=== PATIENT | male | born 1980 | race Caucasian/White ===

== ENCOUNTER 2020-03-19 06:56 | Outpatient (CLI) | payer OTHER, SELFPAY ==
[2020-03-19 07:10] LABS: Add Urine Microscopic? YES; Appearance Urine Clear (Clear); Basophils Absolute Auto 0.04 K/mm3 (0.00-0.10); Basophils Percent Auto 0.4 % (0.0-1.0); Bilirubin Urine Negative (Negative); Blood Urine Negative (Negative); Color Urine Yellow (Yellow); Eosinophils Absolute Auto 0.42 K/mm3 (0.02-0.50); Eosinophils Percent Auto 4.4 % (1.0-6.0); Glucose Urine UA Negative (Negative); Hematocrit 41.6 % (40.0-54.0); Hemoglobin 14.1 g/dL (14.0-18.0); Immature Granulocyte Absolute 0.04 K/mm3 (0.00-0.00); Immature Granulocyte Percent A 0.4 % (0.0-0.0); Ketones Urine Negative (Negative); Leukocyte Esterase Ur Negative (Negative); Lymphocytes Percent Auto 29.6 % (18.0-42.0); Mean Corpuscular HGB Conc 33.9 g/dL (32.0-36.0); Mean Corpuscular Hemoglobin 29.1 pg (27.0-31.0); Mean Corpuscular Volume 85.8 fL (78.0-102.0); Mean Platelet Volume 9.7 fl (8.7-11.0); Monocytes Absolute Auto 0.77 K/mm3 (0.10-0.90); Monocytes Percent Auto 8.1 % (2.0-11.0); Neutrophils Absolute Auto 5.4 K/mm3 (1.7-7.2); Neutrophils Percent Auto 57.1 % (50.0-70.0); Nitrate Urine Negative (Negative); Platelet Count Result 332 K/mm3 (150-420); Protein Urine Trace (Negative); Red Blood Count 4.85 M/mm3 (4.70-6.10); Red Cell Distribution Width 12.2 % (11.6-14.4); Specific Grav Ur >= 1.030 (1.010-1.020); Urobilinogen Urine 0.2 mg/dL (0.2-1.0); White Blood Count 9.5 K/mm3 (4.8-10.8); pH Urine 5.5 (5.0-8.0)
[2020-03-19 07:38] LABS: Bacteria Urine Trace /hpf; Mucus Urine Moderate /lpf; RBC Urine None seen /hpf (0-2); WBC Urine None seen /hpf (0-3)
[2020-03-19 08:37] LABS: Alanine Aminotransferase 33 U/L (16-63); Albumin Level 3.7 g/dL (3.4-5.0); Alkaline Phosphatase 101 U/L (46-116); Anion Gap 8 mmol/L (8-16); Aspartate Amino Transferase 12 U/L (15-37); Bilirubin,Total 0.3 mg/dL (0.00-1.00); Blood Urea Nitrogen 14 mg/dL (7-18); Calcium 8.6 mg/dL (8.5-10.1); Carbon Dioxide 29 mmol/L (21-32); Chloride 104 mmol/L (98-108); Cholesterol 182 mg/dL (0-200); Estimated Glomerular Filt Rate > 60; Glucose 104 mg/dL (70-99); HDL Direct 30 mg/dL (40-60); LDL Cholesterol Calculated 108 mg/dL (<130); Osmolality Calculated 292 mOsm/kg (285-295); Potassium 4.3 mmol/L (3.5-5.1); Sodium 141 mmol/L (136-145); Triglycerides 221 mg/dL (0-150)
[2020-03-24 15:52] LABS: Testosterone Total 453 ng/dL (250-1100)
[2020-03-25 13:06] LABS: Testosterone Free 82.4 pg/mL (35.0-155.0)
== END 2020-03-19 06:57 | disposition home or self-care (01) ==
LOC: CHSLAB 07:00
PROVIDERS: PCP Internal Medicine; Visit Provider Internal Medicine
DX: Z00.00 Encounter for general adult medical examination without abnormal findings (principal); N52.9 Male erectile dysfunction, unspecified
CPT/HCPCS: 36415; 80053; 80061; 81001; 84402; 84403; 85025

== ENCOUNTER 2021-06-02 08:22 | Outpatient (CLI) | payer SELFPAY ==
[2021-06-02 08:55] LABS: Basophils Absolute Auto 0.06 K/mm3 (0.00-0.10); Basophils Percent Auto 0.7 % (0.0-1.0); Eosinophils Absolute Auto 0.32 K/mm3 (0.02-0.50); Eosinophils Percent Auto 3.8 % (1.0-6.0); Hematocrit 39.6 % (40.0-54.0); Hemoglobin 13.4 g/dL (14.0-18.0); Immature Granulocyte Absolute 0.02 K/mm3 (0.00-0.00); Immature Granulocyte Percent A 0.2 % (0.0-0.0); Lymphocytes Absolute Auto 2.66 K/mm3 (1.10-4.50); Lymphocytes Percent Auto 31.6 % (18.0-42.0); Mean Corpuscular HGB Conc 33.8 g/dL (32.0-36.0); Mean Corpuscular Hemoglobin 29.8 pg (27.0-31.0); Mean Corpuscular Volume 88.2 fL (78.0-102.0); Mean Platelet Volume 9.3 fl (8.7-11.0); Monocytes Absolute Auto 0.81 K/mm3 (0.10-0.90); Monocytes Percent Auto 9.6 % (2.0-11.0); Neutrophils Absolute Auto 4.6 K/mm3 (1.7-7.2); Neutrophils Percent Auto 54.1 % (50.0-70.0); Platelet Count Result 268 K/mm3 (150-420); Red Blood Count 4.49 M/mm3 (4.70-6.10); Red Cell Distribution Width 12.2 % (11.6-14.4); White Blood Count 8.4 K/mm3 (4.8-10.8)
[2021-06-02 08:58] LABS: Add Urine Microscopic? NO; Appearance Urine Clear (Clear); Bilirubin Urine Negative (Negative); Blood Urine Negative (Negative); Color Urine Yellow (Yellow); Glucose Urine UA Negative (Negative); Ketones Urine Negative (Negative); Leukocyte Esterase Ur Negative (Negative); Nitrate Urine Negative (Negative); Protein Urine Negative (Negative); Specific Grav Ur >= 1.030 (1.010-1.020); Urobilinogen Urine 0.2 mg/dL (0.2-1.0)
[2021-06-02 09:52] LABS: Alanine Aminotransferase 51 U/L (16-63); Albumin Level 3.2 g/dL (3.4-5.0); Alkaline Phosphatase 94 U/L (46-116); Anion Gap 6 mmol/L (8-16); Aspartate Amino Transferase 21 U/L (15-37); Bilirubin,Total 0.2 mg/dL (0.00-1.00); Blood Urea Nitrogen 13 mg/dL (7-18); Calcium 8.6 mg/dL (8.5-10.1); Carbon Dioxide 31 mmol/L (21-32); Chloride 105 mmol/L (98-108); Cholesterol 154 mg/dL (0-200); Estimated Glomerular Filt Rate > 60; Free T4 Free Thyroxine 0.87 ng/dL (0.76-1.46); Glucose 73 mg/dL (70-99); HDL Direct 48 mg/dL (40-60); LDL Cholesterol Calculated 96 mg/dL (<130); Osmolality Calculated 293 mOsm/kg (285-295); Sodium 142 mmol/L (136-145); Total Protein 6.5 g/dL (6.4-8.2); Triglycerides 51 mg/dL (0-150)
== END 2021-06-02 08:23 | disposition home or self-care (01) ==
PROVIDERS: PCP Internal Medicine; Visit Provider Internal Medicine
DX: Z00.00 Encounter for general adult medical examination without abnormal findings (principal)
CPT/HCPCS: 36415; 80053; 80061; 81003; 84439; 84443; 85025

== ENCOUNTER 2024-08-13 11:52 | Emergency (ER) | payer MEDICAID, SELFPAY ==
--- NOTE | ~2024-08-13 | XR_ITS ---
Right Knee Technique: AP, lateral, and sunrise views were obtained. Clinical History: Injury Findings: No fracture or dislocation is seen. Osseous alignment is anatomic. Joint spaces are preserv ed without degenerative or erosive change. Soft tissues are unremarkable. No joint effusion is seen. Impression: Unremarkable right knee radiographs. Reviewed, dictated and finalized at location . Impression: Unremarkable right knee radiographs.
[2024-08-13 11:53] VITALS: BP 124/76; PULSE 79; RESP 16; TEMP 37.2; O2SAT 96
--- OUTSIDE RECORDS SUMMARY | 2024-08-13 11:54 | XMS_ITS | Clinical Summary ---
Author Organization [facility] Address [facility] [place] [address] Care Team Providers Care Shale Miner Name Role Phone Markus Melchor MD Primary Care Provider [phone] Medications HYDROcodone-kayley taminophen (NORCO) 5-325 MG tabletIndicatio ns:Acute Pain < 3 Day Supply Take 1-2 tablets by mouth every 6 (six) hours as needed. Indications: Acute Pain < 3 Day Supply 12 tablet 01/04/2022 Active Social History Tobacco Use Types Packs/Day Years Used Date Smoking Tobacco: Never Assessed Sex and Gender Information Value Date Recorded Sex Assigned at Not on file Legal Sex Male 7:17 PM CDT Gender Identity Not on file Sexual Orientation Not on file Last Filed Vital Signs Vital Sign Reading Time Taken Comments Blood Pressure 146/89 01/04/2022 4:52 PM STATIONARY ENGINEER Pulse 114 01/04/2022 4:52 PM STATIONARY ENGINEER Temperature 36.8 C (98.2 F) 01/04/2022 4:52 PM STATIONARY ENGINEER Respiratory Rate 18 01/04/2022 4:52 PM STATIONARY ENGINEER Oxygen Saturation 100% 01/04/2022 4:52 PM STATIONARY ENGINEER Inhaled Oxygen Concentration - - Weight 79.4 kg (175 lb) 01/04/2022 4:52 PM STATIONARY ENGINEER Height 180.3 cm (5' 11) 01/04/2022 4:52 PM STATIONARY ENGINEER Body Mass Index 24.41 01/04/2022 4:52 PM STATIONARY ENGINEER Plan of Treatment Health Maintenance Due Date Last Done Comments Annual Physical 12/19/1982 Hepatitis C 12/19/1997 Hepatitis B Vaccines (1 of 3 - 19+ 3-dose series) 12/19/1998 DTaP, Tdap and Td Vaccines ( 2 - Td or Tdap) 12/15/2021 12/16/2011 COVID-19 Vaccine (2023-2 5 season) 2023 HPV Vaccines Aged Out No longer eligi ble based on patient's age to complete this topic Meningococcal B Vaccine Aged Out No l onger eligible based on patient's age to complete this topic Meningococcal Vaccine Aged Out No safia sharan eligible based on patient's age to complete this topic Pneumococcal Vaccine: Pediat rics (0 to 5 Years) and At-Risk Patients (6 to 49 Years) Aged Out No longer eligi ble based on patient's age to complete this topic RSV Immunizations Under 20 Months Aged Out No longer eligible based on patient's age to complete this topic Care Teams Shale Miner Relationship Specialty Start Date End Date Markus Melchor MD [address] [place] [address] PCP - General INTERNAL MEDICINE 01/04/22
--- NOTE | 2024-08-13 11:58 | ED_ITS ---
HPI - Extremity Injury (Lower) General Chief Complaint: Extremity Injury, Lower Stated Complaint: right knee swelling Time Seen by Provider: 08/13/24 11:56 Source: patient Mode of arrival: ambulatory Limitations: no limitations History of Present Illness HPI Narrative: Twisted right knee at work, felt a pop. No other injuries. Worse with movement and putting weight Related Data Home Medications ?Medication ?Instructions ?Recorded ?Confirmed ?Last Taken ?Type No Home Medications 12/25/18 12/25/18 Unknown History Allergies Allergy/AdvReac Type Severity Reaction Status Date / Time No Known Allergies Allergy Mild Verified 12/25/18 20:43 Review of Systems Review of Systems: All systems reviewed & are unremarkable except as noted in HPI and below PMFSH Past Medical History Medical History (Updated 08/13/24 @ 12:24 by La Nena Jama MD) Healthy adult Surgical History Surgical History No history of previous surgery Family History Family History Grandparent Non Hodgkin's lymphoma Grandparent FH: stomach cancer Other Diverticulitis Other Unknown family medical history Social History Social History Smoking packs per day: 1.5 Smoking cigarettes per day: 30.0 Years smoked: 23 Smoking pack-years: 34.50 Smoking status: Current every day smoker Tobacco type: cigarettes Second hand tobacco smoke exposure: Yes Alcohol intake: current Drinks per week: 1 Alcohol use details: Socially Substance use: never Occupation/Education: occupation Additional occupation/education comments: The patient works as a life insurance sales. Gender identity (if verbalized by the patient): Male Spiritual care concerns: No Agree to blood products: Yes Exam Narrative: General appearance: Well-developed, well-nourished Skin: Normal color Head: Normocephalic, nontraumatic l Neck: Supple, nontender Chest and respiratory: Airway patent, no respiratory distress, no accessory mus ginger use Heart: Regular rate/rhythm Abdomen: Soft, nontender, no organomegaly, quiet bowel sounds Vascular: Normal peripheral pulses, normal capillary refill. Musculoskeletal: right knee exam showed localized tenderness anteriorly, slightly swelling, no bruises, no deformity, limited range of motion because of pain Neurologic: Alert and oriented ?3, EMERGENCY MEDICAL DISPATCHER is normal as tested, no gross motor deficit Course Vital Signs Vital signs: Vital Signs Temperature 37.2 C 08/13/24 11:53 Pulse Rate 79 08/13/24 11:53 Respiratory Rate 16 08/13/24 11:53 Blood Pressure 124/76 08/13/24 11:53 Pulse Oximetry 96 08/13/24 11:53 Oxygen Delivery Room Air 08/13/24 11:53 Temperature 37.2 C 08/13/24 11:53 Pulse Rate 79 08/13/24 11:53 Respiratory Rate 16 08/13/24 11:53 Blood Pressure 124/76 08/13/24 11:53 Pulse Oximetry 96 08/13/24 11:53 Oxygen Delivery Room Air 08/13/24 11:53 MDM - Extremity Injury (Lower) MDM Narrative Medical decision making narrative: right knee twist Differential diagnosis sprain, strain, internal injury, less likely fracture X-ray of the right knee showed Differential Diagnosis Differential diagnosis: Likely acute internal derangement of knee and fracture of femur Imaging Data Radiologist's impression: Impressions Knee X-Ray 08/13/24 12:30 Impression: Unremarkable right knee radiographs. Critical Care Time Critical Care Time Critical Care Time: No Discharge Plan Discharge Clinical Impression: Right knee sprain Patient Disposition: Home Condition: Stable Instructions: Knee Sprain (ED), Splint Care (ED) Additional Instructions: Return if symptoms are worsening , call your family physician /orthopedic for appointment, take Tylenol , ibuprofen as as needed for aches and pain, continue home medications. Keep leg elevated, ice Patient Language: Moldovan Prescriptions: No Action No Home Medications Follow-up/Referrals: Rocco Suarez MD [Physician] - 08/15/24 Markus Melchor MD [Primary Care Provider] - Stand Alone Forms: Work/School Release IP
--- OUTSIDE RECORDS SUMMARY | 2024-08-13 12:24 | XMS_ITS | Clinical Summary ---
Author Organization [facility] Address [facility] [place] [address] Care Team Providers Care Special Education Professional Name Role Phone Markus Melchor MD Primary Care Provider Medications HYDROcodone-kayley taminophen (NORCO) 5-325 MG tabletIndicatio [...] Comments Blood Pressure 146/89 01/04/2022 4:52 PM RAIL DETECTOR CAR OPERATOR Pulse 114 01/04/2022 4:52 PM RAIL DETECTOR CAR OPERATOR Temperature 36.8 C (98.2 F) 01/04/2022 4:52 PM RAIL DETECTOR CAR OPERATOR Respiratory Rate 18 01/04/2022 4:52 PM RAIL DETECTOR CAR OPERATOR Oxygen Saturation 100% 01/04/2022 4:52 PM RAIL DETECTOR CAR OPERATOR Inhaled Oxygen Concentration - - Weight 79.4 kg (175 lb) 01/04/2022 4:52 PM RAIL DETECTOR CAR OPERATOR Height 180.3 cm (5' 11) 01/04/2022 4:52 PM RAIL DETECTOR CAR OPERATOR Body Mass Index 24.41 01/04/2022 4:52 PM RAIL DETECTOR CAR OPERATOR Plan of Treatment Health Maintenance Due Date [...] age to complete this topic Care Teams Special Education Professional Relationship Specialty Start Date End Date Markus Melchor MD [address] [place] [address] PCP - General INTERNAL MEDICINE 01/04/22
[2024-08-13] MEDS: IBUPROFEN 600 MG TABLET PO (12:41)
[2024-08-13] MEDS: HYDROcodone/acetaminophen (*CRX) 5-325 MG TABLET 1 TAB PO (12:42)
[2024-08-13 12:59] VITALS: BP 121/82; PULSE 84; RESP 16; TEMP 37; O2SAT 99
== END 2024-08-13 12:57 | disposition home or self-care (01) ==
PROVIDERS: Emergency Provider Emergency Medicine; PCP Internal Medicine
DX: S83.91XA Sprain of unspecified site of right knee, initial encounter (principal); F17.210 Nicotine dependence, cigarettes, uncomplicated; X50.0XXA Overexertion from strenuous movement or load, initial encounter; Y99.0 Civilian activity done for income or pay
CPT/HCPCS: 73562; 99283; A9270; L1830

== ENCOUNTER 2024-08-21 08:02 | Outpatient (CLI) | payer MEDICAID, SELFPAY ==
--- NOTE | ~2024-08-21 | MR_ITS ---
MRI of the right knee Clinical history: Injury Technique: Coronal proton density and proton density-weighted images, sagittal proton-density and T2 fat-sat images, and axial proton-density fat-saturated images were acquired. Findings: There is complete tear of the ACL which is very amorphous and poorly defined. Posterior cru ciate ligament is intact. Medial collateral ligament and the lateral collateral ligament complex is i ntact. Popliteus tendon is intact. Lateral meniscus is intact. There is a large bucket-handle tear of the medial meniscus with handle fr agment flipped towards intercondylar notch. There is a nondisplaced, minimally depressed impaction fracture at the posterolateral tibial plateau with extensive surrounding marrow edema (sagittal image 10, coronal image 18). There is mild contusio n of the posterior medial tibial plateau. Extensor mechanism is intact. Moderate to large joint effusion present. Minimal Painting's cyst. Impression: Acute ACL tear. Large bucket-handle tear of the medial meniscus, as detailed above. Nondisplaced, minimally depressed focal impaction fracture at the posterolateral tibial plateau with extensive surrounding marrow edema. Mild contusion at the posterior medial tibial plateau. Moderate to large joint effusion. Reviewed, dictated and finalized at [facility]. Impression: Acute ACL tear. Large bucket-handle tear of the medial meniscus, as detailed above. Nondisplaced, minimally depressed focal impaction fracture at the posterolatera l tibial plateau with extensive surrounding marrow edema. Mild contusion at the posterior medial tibial plateau. Moderate to large joint effusion.
--- OUTSIDE RECORDS SUMMARY | 2024-08-21 08:07 | XMS_ITS | Clinical Summary ---
Author Organization [facility] Address [facility] [place] [address] Care Team Providers Care Diesel Roller Operator Name Role Phone Markus Melchor MD Primary Care Provider [phone] Medications HYDROcodone-kayley taminophen (NORCO) 5-325 MG tabletIndicatio [...] Comments Blood Pressure 146/89 01/04/2022 4:52 PM WELL TREATMENT OFFSIDER Pulse 114 01/04/2022 4:52 PM WELL TREATMENT OFFSIDER Temperature 36.8 C (98.2 F) 01/04/2022 4:52 PM WELL TREATMENT OFFSIDER Respiratory Rate 18 01/04/2022 4:52 PM WELL TREATMENT OFFSIDER Oxygen Saturation 100% 01/04/2022 4:52 PM WELL TREATMENT OFFSIDER Inhaled Oxygen Concentration - - Weight 79.4 kg (175 lb) 01/04/2022 4:52 PM WELL TREATMENT OFFSIDER Height 180.3 cm (5' 11) 01/04/2022 4:52 PM WELL TREATMENT OFFSIDER Body Mass Index 24.41 01/04/2022 4:52 PM WELL TREATMENT OFFSIDER Plan of Treatment Health Maintenance Due Date [...] age to complete this topic Care Teams Diesel Roller Operator Relationship Specialty Start Date End Date Markus Melchor MD [address] [place] [address] PCP - General INTERNAL MEDICINE 01/04/22
== END 2024-08-21 08:03 | disposition home or self-care (01) ==
LOC: CHSIMG 08:04
PROVIDERS: PCP Family Medicine; Visit Provider Family Medicine
DX: S89.91XA Unspecified injury of right lower leg, initial encounter (principal); S83.421A Sprain of lateral collateral ligament of right knee, initial encounter; S83.211A Bucket-handle tear of medial meniscus, current injury, right knee, initial encounter; S82.144A Nondisplaced bicondylar fracture of right tibia, initial encounter for closed fracture; M79.89 Other specified soft tissue disorders; M25.461 Effusion, right knee
CPT/HCPCS: 73721

== ENCOUNTER 2024-11-21 12:06 | Emergency (ER) | payer OTHER, SELFPAY ==
--- NOTE | 2024-11-21 12:09 | ED_ITS ---
HPI - Dental/Oral General Chief complaint: Dental/Oral Stated complaint: facial swelling Source: patient Mode of arrival: ambulatory Limitations: no limitations History of Present Illness HPI Narrative: Patient is a 43-year-old male with a left face swelling over the past day. He has a bad tooth in the left upper mouth back row of teeth. MD Complaint: tooth pain (Sixteen) Onset (ago): day(s) (1) Duration: constant Severity: mild Severity scale (1-10): 1 Relieving factors: nothing Exacerbating factors: nothing Context: history of dental caries Associated symptoms: other (None) Treatment prior to arrival: none Related Data Allergies Allergy/AdvReac Type Severity Reaction Status Date / Time No Known Allergies Allergy Mild Verified 12/25/18 20:43 Review of Systems Review of Systems: All systems reviewed & are unremarkable except as noted in HPI and below Constitutional: Constitutional: Reports no additional constitutional complaints Eyes: Eyes: Reports no additional eye complaints ENT: Reports system reviewed and no additional complaints, except as documented Cardiovascular: Cardiovascular: Reports no additional cardiovascular complaints Respiratory: Respiratory: Reports no additional respiratory complaints Gastrointestinal: Gastrointestinal: Reports no additional gastrointestinal complaints Genitourinary: Genitourinary: Reports no additional male genitourinary complaints Musculoskeletal: Musculoskeletal: Reports no additional musculoskeletal complaints Integumentary/Breasts: Skin/Breast: Reports system reviewed and no additional complaints, except as docu Neurologic: Reports system reviewed and no additional complaints, except as documented Psychiatric: Psychiatric: Reports no additional psychiatric complaints Endocrine: Endocrine: Reports no additional endocrine complaints Hematologic/Lymphatic: Hematologic/Lymphatic: Reports no additional hematologic/lymphatic complaints Allergic/Immunologic: Allergic/Immunologic: Reports no additional allergic/immunologic complaints PMFSH Past Medical History Medical History Healthy adult Surgical History Surgical History No history of previous surgery Family History Family History Grandparent Non Hodgkin's lymphoma Grandparent FH: stomach cancer Other Diverticulitis Other Unknown family medical history Social History Social History Smoking packs per day: 1.5 Smoking cigarettes per day: 30.0 Years smoked: 23 Smoking pack-years: 34.50 Smoking status: Current every day smoker Tobacco type: cigarettes Second hand tobacco smoke exposure: Yes Alcohol intake: current Drinks per week: 1 Alcohol use details: Socially Substance use: never Occupation/Education: occupation Additional occupation/education comments: The patient works as a sales consultant residential manager. Gender identity (if verbalized by the patient): Male Spiritual care concerns: No Agree to blood products: Yes Exam Const: General: healthy appearing Nutritional Appearance: well nourished Orientation/consciousness: patient oriented x3 HENMT: Head: normal to inspection Ears: external ears normal Face/Nose/Sinus: Normal external nose present Teeth and gingiva: abnormal dentition Throat: posterior oropharynx normal Other: Left upper maxilla dental pain minimally but more so left cheek swelling Eyes: Conjunctivae: conjunctivae normal Pupils: Equal, round and reactive pupils present EOM: EOMs intact bilaterally Neck: Neck: normal visual inspection Chest: Chest palpation & inspection: normal inspection of the chest Resp: Effort & Inspection: normal respiratory effort and not labored Auscul tation: clear to auscultation bilaterally and no crackles Cardio: Rate: regular rate Rhythm: regular rhythm Heart sounds: no murmurs GI: Inspection: non-distended GI Palp: Yes Soft to palpation and No Tenderness to palpation present (GI) Auscultation: normal bowel sounds : General: Yes bladder normal to palpation Skin: General skin exam: normal color Rashes: no rashes Wounds: no wounds Neuro: General: patient oriented x3, moves all extremities and no meningeal signs Extrem: General: normal to inspection, no clubbing, cyanosis or edema and no pedal edema Psych: Mental Status: mental status grossly normal Affect: normal affect Attitude: cooperative Course Vital Signs Vital signs: Vital Signs Temperature 36.6 C 11/21/24 12:10 Pulse Rate 100 11/21/24 12:10 Respiratory Rate 20 11/21/24 12:10 Blood Pressure 124/94 H 11/21/24 12:10 Pulse Oximetry 98 11/21/24 12:10 Oxygen Delivery Room Air 11/21/24 12:10 Temperature 36.6 C 11/21/24 12:10 Pulse Rate 100 11/21/24 12:10 Respiratory Rate 20 11/21/24 12:10 Blood Pressure 124/94 H 11/21/24 12:10 Pulse Oximetry 98 11/21/24 12:10 Oxygen Delivery Room Air 11/21/24 12:10 MDM - Dental/Oral MDM Narrative Medical decision making narrative: Patient is a 43-year-old male with left cheek swelling and minimal dental pain over the past day. Prednisone x1 now. Augmentin 10 days. Dentist as soon as possible. Discharge Plan Discharge Clinical Impression: Maxilla pain Patient Disposition: Home Condition: Stable Instructions: Antibiotic Form, Toothache (ED) Additional Instructions: Please see a dentist as soon as possible. Patient Language: Maltese Prescriptions: New amoxicillin-pot clavulanate 875-125 mg tablet 1 tablet PO BID 10 Days Qty: 20 0RF Follow-up/Referrals: Lissette,Alannah Mcclelland MD [Primary Care Provider, Unknown] Time of Disposition: 12:27
[2024-11-21 12:10] VITALS: BP 124/94; PULSE 100; RESP 20; TEMP 36.6; O2SAT 98
--- OUTSIDE RECORDS SUMMARY | 2024-11-21 12:50 | XMS_ITS | Clinical Summary ---
Author Organization [facility] Address [facility] [place] [address] Care Team Providers Care Mold Designer Name Role Phone Markus Melchor MD Primary Care Provider [phone] Medications HYDROcodone-kayley taminophen (NORCO) 5-325 MG tabletIndicatio [...] Comments Blood Pressure 146/89 01/04/2022 4:52 PM TIRE WORKER Pulse 114 01/04/2022 4:52 PM TIRE WORKER Temperature 36.8 C (98.2 F) 01/04/2022 4:52 PM TIRE WORKER Respiratory Rate 18 01/04/2022 4:52 PM TIRE WORKER Oxygen Saturation 100% 01/04/2022 4:52 PM TIRE WORKER Inhaled Oxygen Concentration - - Weight 79.4 kg (175 lb) 01/04/2022 4:52 PM TIRE WORKER Height 180.3 cm (5' 11) 01/04/2022 4:52 PM TIRE WORKER Body Mass Index 24.41 01/04/2022 4:52 PM TIRE WORKER Plan of Treatment Health Maintenance Due Date Last Done Comments Annual Physical 12/19/1982 Hepatitis C 12/19/1997 Hepatitis B Vaccines (1 of 3 - 19+ 3-dose series) 12/19/1998 HPV Vaccines (1 - 3-dose SCD M series) 12/19/2006 DTaP, Tdap and Td Vaccines ( 2 - Td or Tdap) 12/15/2021 12/16/2011 COVID-19 Vaccine (1 - 2023-2 5 season) 2024 Influenza Adult (#1) 2024 Meningococcal B Vaccine Aged Out No l [...] age to complete this topic Care Teams Mold Designer Relationship Specialty Start Date End Date Markus Melchor MD [address] [place] [address] PCP - General INTERNAL MEDICINE 01/04/22
--- OUTSIDE RECORDS SUMMARY | 2024-11-21 12:50 | XMS_ITS | Clinical Summary ---
Author Organization [facility] Address [address] [place] [id number] Care Team Providers Care Grounds Keeper Name Role Phone Unavailable Primary Care Provider Unavailabl e Social History Tobacco Use Types Packs/Day Years Used Date Smoking Tobacco: Never Assessed Sex and Gender Information Value Date Recorded Sex Assigned at Not on file Legal Sex Male 12:28 PM CDT Gender Identity Not on file Sexual Orientation Not on file Plan of Treatment Health Maintenance Due Date Last Done Comments HIV Screening 1979 Hepatitis C Screening ages 1 8 to 79 once 1980 MMR VACCINES (1 of 1 - Stand ed[place] series) 12/19/1980 YEARLY WELLNESS EXAM 12/19/1982 DEPRESSION SCREENING 1991 HPV VACCINES (1 - Male 3-dos e series) 12/19/1994 ADULT TETANUS 12/19/1998 HEPATITIS B VACCINES (1 of 3 - 19+ 3-dose series) 12/19/1998 LIPID TESTING 12/19/2014 Influenza Vaccine 09/05/2024 COVID-19 Immunization (1 - 2 024-25 season) 2024 Zoster Vaccine (Recombinant Vaccine) (1 of 2) 12/19/2029 HEPATITIS A VACCINES Aged Out No long er eligible based on patient's age to complete this topic HIB VACCINES Aged Out No longer eligi ble based on patient's age to complete this topic IPV VACCINES Aged Out No longer eligi ble based on patient's age to complete this topic MENINGOCOCCAL VACCINE Aged Out No safia sharan eligible based on patient's age to complete this topic Meningococcal B Vaccine Aged Out No l onger eligible based on patient's age to complete this topic Pneumococcal Vaccine: Peds t o 50 & At-Risk Patients Aged Out No longer eligible b ased on patient's age to complete this topic ROTAVIRUS VACCINES Aged Out No longer eligible based on patient's age to complete this topic
== END 2024-11-21 12:38 | disposition home or self-care (01) ==
PROVIDERS: Emergency Provider Emergency Medicine; PCP Family Medicine
DX: R68.84 Jaw pain (principal); F17.210 Nicotine dependence, cigarettes, uncomplicated
CPT/HCPCS: 99283; J7512